=== PATIENT | male | born 1985 ===

== ENCOUNTER 2017-12-18 16:24 | Emergency (ER) | payer SELFPAY ==
[2017-12-18 17:12] VITALS: BP 105/70; PULSE 92; RESP 16; TEMP 98; O2SAT 99
--- NOTE | 2017-12-18 17:53 | C.PDOC ---
History Of Present Illness 32 year old male presents to the ED for evaluation of new onset lower back pain which began after heavy lifting yesterday. Patient states pain is to his bilateral lower back and is worse with movement. He found no relief with Aleve or Tylenol. He denies any other associated symptoms. 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 NEW ONSET LBP SINCE YEST ONSET AFTER HEAVY LIFTING B/L LOWER BACK WORSE W MOVEMENT. NO RELIEF W ALEVE AND TYLENOL. DENIES OTHER ASSOC SX.NO MEDS TAKEN CLERICAL ASSISTANT EXAM MILD DIST BACK LIMITED FULL EXT DUE TO PAIN; B/LLOWER SPASM; NO LS TEND NEURO INTACT Time Seen by Provider: 12/18/17 17:10 History Per: Patient History/Exam Limitations: no limitations Onset/Duration Of Symptoms: Hrs Current Symptoms Are (Timing): Still Present Quality Of Discomfort: "Pain" Previous Symptoms: Back Pain (lower) Associated Symptoms: denies: Incontinence, New Weakness, New Numbness Exacerbating Factor(s): Movement Additional History Per: Patient Past Medical History Reviewed: Historical Data, Nursing Documentation, Vital Signs Vital Signs: Last Vital Signs Temp 98 F 12/18/17 17:10 Pulse 92 H 12/18/17 17:10 Resp 16 12/18/17 17:10 BP 105/70 12/18/17 17:10 Pulse Ox 99 12/18/17 17:55 - Medical History PMH: No Chronic Diseases Surgical History: No Surg Hx Family History: States: Unknown Family Hx - Social History Hx Alcohol Use: No Hx Substance Use: No Review Of Systems Genitourinary: Negative for: Incontinence Musculoskeletal: Positive for: Back Pain (lower) Neurological: Negative for: Weakness, Numbness Physical Exam - Physical Exam Appears: Non-toxic, Other (in mild distress) Skin: Normal Color, Warm, Dry Head: Atraumatic, Normacephalic Neck: Supple Back: Muscle Spasm (to b/l lower back ), No Paraspinal Tenderness (lumbar ), Other (limited full extension due to pain) Extremity: Normal ROM, Capillary Refill (less than 2 seconds ) Neurological/Psych: Oriented x3, Normal Speech, Normal Cognition, Normal Motor, Normal Sensation Gait: Steady ED Course And Treatment O2 Sat by Pulse Oximetry: 99 (on RA) Pulse Ox Interpretation: Normal Progress Note: Flexeril PO and Toradol IM administered. Disposition Counseled Patient/Family Regarding: Diagnosis, Need For Followup, Rx Given - Disposition Referrals: [facility] [Outside] [facility] [Outside] Disposition: HOME/ ROUTINE Disposition Time: 17:54 Condition: IMPROVED Prescriptions: Cyclobenzaprine [Flexeril] 10 mg PO TID #15 tab Ibuprofen [Motrin] 600 mg PO Q6 #30 tab Lidocaine 5% [Lidoderm] 1 ea TD PRN PRN #10 patch PRN Reason: Pain, Moderate (4-7) Instructions: Acute Low Back Pain (ED) Forms: Work Excuse Print Language: ALBANIAN - Clinical Impression Clinical Impression: Low back strain - Scribe Statement The provider has reviewed the documentation as recorded by the Scribe (Maegan Grover) Provider Attestation: All medical record entries made by the Scribe were at my direction and personally dictated by me. I have reviewed the chart and agree that the record accurately reflects my personal performance of the history, physical exam, medical decision making, and the department course for this patient. I have also personally directed, reviewed, and agree with the discharge instructions and disposition.
== END 2017-12-18 18:04 | disposition home or self-care (01) ==
LOC: C.ER 16:24
DX: S39.012A Strain of muscle, fascia and tendon of lower back, initial encounter (principal); X50.0XXA Overexertion from strenuous movement or load, initial encounter
CPT/HCPCS: 96372; 99283; J1885